=== PATIENT | female | born 1935 | race Caucasian/White ===

== ENCOUNTER 2018-09-16 18:19 | Inpatient (IN) | payer OTHER ==
[~2018-09-16] VITALS: Ht 154.9 cm; Wt 64.9 kg
--- NOTE | 2018-09-16 19:06 | NUR ---
PT C/O LOWER ABDOMINAL PAIN SINCE THIS MORNING. PT STATES SHE IS CONSTIPATED AND NAUSEAOUS. PT HAS EXTENSIVE HX OF DIVERTICULITIS, HTN, BLADDER SURGERY, KIDNEY SURGERY, AND MOTHER OF COLON CANCER AT 83. PT DENIES ANY PAINFUL URINATION OR VISIBLE BLOOD. PT STATES "THIS PAIN FEELS DIFFERENT THAN BEFORE". FAMILY AT BEDSIDE. NO DISTRESS NOTED AT THIS TIME.
[2018-09-16 19:27] LABS: BASOPHIL % 0.2 % (0-2); PLATELET COUNT 236 x10^3mcL (130-400); RED CELL DISTRIBUTION WIDTH 17.5 % (11.5-14.5)
--- NOTE | 2018-09-16 19:27 | NUR ---
REPORT GIVEN TO MAREK BYERS.
[2018-09-16 19:32] LABS: ALBUMIN 3.8 g/dL (3.4-5.0); ALKALINE PHOSPHATASE 168 U/L (46-116); ALT/SGPT 15 U/L (14-59); AST/SGOT 21 U/L (15-37); BILIRUBIN TOTAL 0.44 mg/dL (0.20-1.00); CALCIUM 9.5 mg/dL (8.5-10.1); CARBON DIOXIDE 35.3 mmol/L (21-32); CHLORIDE SERUM 94 mmol/L (98-107); GLUCOSE SERUM 115 mg/dL (74-106); LIPASE 234 IU/L (73-393); POTASSIUM SERUM 3.5 mmol/L (3.5-5.1); SODIUM SERUM 139 mmol/L (136-145)
[2018-09-16 19:39] LABS: AMYLASE 121 U/L (25-115); CREATININE SERUM 6.1 mg/dL (0.6-1.0); TOTAL PROTEIN, SERUM 8.5 g/dL (6.4-8.2)
--- NOTE | 2018-09-16 19:53 | NUR ---
PT TAKEN TO CT VIA RBERNIE.
--- NOTE | 2018-09-16 21:10 | NUR ---
SPOKE WITH DR. JOSHUA FOR ADMIT ORDERS. PT TO BE ADMITTED TO MED/SURG WITH DSG: APPENDICITIS.CALL DR. NATALIIA REED FOR FURTHER ORDERS.
--- NOTE | 2018-09-16 22:07 | NUR ---
RECEIVED PT FROM ED VIA [facility], CAME IN DUE TO ABDOMINAL PAIN W/ NAUSEA AND CONSTIPATION. AAOX4. DENIES HEADACHE/DIZZINESS. ABLE TO FOLLOW COMMANDS. NO SOB NOTED, LUNG SOUNDS CTA. DENIES CHEST PAIN/PRESSURE. STATED THAT SHE HAS 5/10 ABDOMINAL PAIN DESCRIBED THROBBING AND SHARP W/ MILD NAUSEA. STATED THAT SHE HAD BM TODAY BUT IS CONSTIPATED, PT STATED THAT SHE IS TAKING LAXATIVES. W/ LUE AV SHUNT, BRUIT AND THRILL PRESENT. PT STATED THAT SHE STILL VOIDS BUT A LITTLE BIT. ABLE TO MOVE ALL EXTREMITIES.IV SITE ON RFA IS PATENT AND INTACT. RECEIVED PT FROM ED W/ NS ONGOING. SIDE RAILS UPX2. CALL LIGHT ON REACH. ENDORSED TO PRIMARY NURSE CHANA FOR CONTINUITY OF CARE
--- NOTE | 2018-09-16 22:10 | NUR ---
RECEIVED PT FROM ED. PT AOX4. DENIES BAIRES/DIZZINESS. MED SURG PT. DENIES CP/PRESSURE. PULSES PALPABLE, NO EDEMA NOTED. LUNG SOUNDS CLEAR, ON RA. DENIES SOB/DIFFICULTY BREATHING. BOWEL SOUNDS ACTIVE. VOIDS FREELY, C/O OLIGURIA. AMBULATORY. SKIN INTACT. LUE SHUNT NOTED. IV TO RFA, INTACT AND PATENT. BED IN LOWEST POSITION. CALL LIGHT WITHIN REACH. WILL CONTINUE TO MONITOR.
[2018-09-16 22:32] VITALS: BP 117/64
[2018-09-16 22:35] VITALS: Ht 154.9 cm; Wt 64.9 kg
--- NOTE | 2018-09-16 22:42 | NUR ---
PT C/O 5/10 PAIN IN ABD. MEDICATED PER EMAR. WILL CONTINUE TO MONITOR.
[2018-09-17] MEDS ORDERED: NEURONTIN100 MG PO (00:20)
[2018-09-17] MEDS ORDERED: GABAPENTIN300 M4 PO (00:21)
[2018-09-17] MEDS ORDERED: ASPIR LOW81 MG PO (00:22)
[2018-09-17] MEDS ORDERED: RENA-VITE1 TAB (00:23)
[2018-09-17] MEDS ORDERED: LIPI10 PO (00:23)
[2018-09-17] MEDS ORDERED: NOR10 PO (00:25)
[2018-09-17] MEDS ORDERED: OMEPRAZOLE40 M1 PO (00:25)
[2018-09-17] MEDS ORDERED: RENVELA800 M1 PO (00:27)
[2018-09-17] MEDS ORDERED: ISOSORBIDE MONO60 MG PO (00:28)
[2018-09-17] MEDS ORDERED: PATANOL5 ML OU (00:32)
--- NOTE | 2018-09-17 03:33 | NUR ---
PT C/O 02/23 PAIN IN HER ABD. MEDICATED PER EMAR. WILL CONTINUE TO MONITOR.
[2018-09-17 05:40] VITALS: BP 165/63
--- NOTE | 2018-09-17 05:40 | NUR ---
TAYO WIPES PROVIDED TO PT. REPORT GIVEN TO OBINNA FROM OR.
--- NOTE | 2018-09-17 05:45 | NUR ---
PT HEP LOCKED. TAKEN DOWN TO OR BY OR NURSES. WILL ENDORSE CARE TO ONCOMING SHIFT NURSE.
[2018-09-17 05:49] LABS: CALCIUM 9.2 mg/dL (8.5-10.1); CARBON DIOXIDE 31.9 mmol/L (21-32); CHLORIDE SERUM 99 mmol/L (98-107); GLUCOSE SERUM 109 mg/dL (74-106); POTASSIUM SERUM 3.6 mmol/L (3.5-5.1); SODIUM SERUM 137 mmol/L (136-145)
[2018-09-17 05:52] LABS: CREATININE SERUM 6.6 mg/dL (0.6-1.0)
[2018-09-17 05:54] LABS: BASOPHIL % 0.3 % (0-2); PLATELET COUNT 171 x10^3mcL (130-400)
[2018-09-17 07:09] LABS: UA SPECIFIC GRAVITY 1.015 (1.005-1.035); microscopic required? YES; urine erythrocyte NEGATIVE (NEGATIVE)
[2018-09-17 07:12] LABS: RED CELL DISTRIBUTION WIDTH 17.3 % (11.5-14.5)
--- NOTE | 2018-09-17 07:15 | NUR ---
CARE ENDORSED TO ONCOMING SHIFT NURSE.
[2018-09-17 07:48] VITALS: BP 139/59
--- NOTE | 2018-09-17 07:48 | NUR ---
ARRIVED FR. RECOVERY ROOM S/P LAP APPY.4 INCISSION X4 WITH BANDAID CDI.AAO X4.DENIES ANY PAIN/DISCOMFORT.LUNGS CLEAR.PT NONE-TELE.LUE WITH AV SHUNT + BRUIT AND THRILL.V/S STABLE.CALL LIGHT WITHIN REACH.INSTRUCTED TO CALL FOR ANY PAIN/DISCOMFORT.WILL CONTINUE TO MONITOR PT.
--- NOTE | 2018-09-17 11:09 | NUR ---
TALKED TO DR. GARVEY ABOUT PT NEED FOR DIALYSIS TODAY.CONSULTED /[facility]. PER PT HAS DIALYSIS APT AT 2 PM.INFORMED THAT PT WILL NEED TO BE DISCHARGE BEFORE PT'S APT. IS AWARE.
[2018-09-17] MEDS ORDERED: TYLENOL WITH CO1 TA2 PO (11:19)
[2018-09-17 11:38] VITALS: BP 139/58
--- NOTE | 2018-09-17 11:48 | NUR ---
GAVE TYLENOL 650 MG PO FOR C/O MILD ABD'L INCISSION AT 6/10 PAIN SCALE.WILL CONTINUE TO MONITOR PT.
--- NOTE | 2018-09-17 11:58 | NUR ---
daughter came and talk to rn.informed nurse pt is not comfortable going home.claims to be not feeling well.paged .
--- NOTE | 2018-09-17 12:00 | NUR ---
INFORMED ABOUT PATIENT AND FAMILY NOT COMFORTABLE TO GO HOME.PT CLAIMS NOT FEELING GOOD.PT WILL STAY FOR NOW PER WILL HAVE TO WALK PT AND SEE HOW SHE DOES AND LET HIM KNOW.ALSO PT WANTED TO HAVE DIALYSIS HERE.PAGED INFORMED HIM PT AND FAMILY PREFER TO HAVE DIALYSIS HERE. WILL ORDER DIALYSIS FOR PT.
--- NOTE | 2018-09-17 12:48 | NUR ---
WENT TO RECHECK PT'S PAIN LEVEL PER PT PAIN WENT DOWN TO 2/10 PAIN SCALE.
--- NOTE | 2018-09-17 14:38 | NUR ---
AMBULATED PT TO THE RESTROOM TOLERATED IT WELL.
--- NOTE | 2018-09-17 15:44 | NUR ---
DIALYSIS STARTED BY DEMETRISDIALYSIS NURSE.
[2018-09-17 16:30] VITALS: BP 146/46
[2018-09-17 18:19] VITALS: BP 171/50
--- NOTE | 2018-09-17 18:19 | NUR ---
DIALYSIS DONE WITH 2 L OUT.PT TOLERATED IT WELL.ALSO GAVE IMDUR EARLY FOR KS=[id number]
--- NOTE | 2018-09-17 18:28 | NUR ---
NO SIGNIFICANT CHANGE NOTED.WILL ENDORSE TO NEXT SHIFT.
--- NOTE | 2018-09-17 18:50 | NUR ---
PAGED TO ASK FOR PRN BP MEDS AND PT C/O GAS PAINS.AWAITING FOR CALL BACK.
--- NOTE | 2018-09-17 19:25 | NUR ---
CALLED BACK ORDERED SIMETHICONE AND HYDRALAZINE 10 MG PO.ORDERS MADE.ENDORSED TO NAZSD NEXT SHIFT TO GIVE
[2018-09-17 20:12] VITALS: BP 162/56
--- NOTE | 2018-09-17 20:26 | NUR ---
AAO X4 VERBAL THAI SPEAKING WITH SOME LAO, DENIES PAIN NO DISTRESS, LUNGS CTA, NO COUGHING OR CHEST CONGESTION, S/P HD PUTTING OUT 2L, TOLERATED WELL, LUE AV SHUNT WITH PRESSURE DRESSING NO BLEEDING, PT HAS INTACT BANDAID DRESSING LOWER ABDL AREA, X5 NO SIGNS OF BLEEDING PT DENIES PAIN JUST HAVING SOME GAS, PAIN MD AWARE MYLICON PO GIVEN PER ORDER, BP 162/56, IV ACCESS RFA PATENT NON INFIL, IVF INFUSING @ 80CC/HR, SHIFT ASSESSMENT DONE, ATTENDED NEEDS CONT TO MONITOR.
--- NOTE | 2018-09-18 02:27 | NUR ---
PT ASLEEP NO S/SX OF PAIN OR DISCOMFORTS, CHECKED AT INTERVALS.
[2018-09-18 04:51] VITALS: BP 148/53
[2018-09-18 06:38] LABS: BASOPHIL % 0.2 % (0-2); PLATELET COUNT 148 x10^3mcL (130-400)
[2018-09-18 06:40] LABS: RED CELL DISTRIBUTION WIDTH 17.4 % (11.5-14.5)
--- NOTE | 2018-09-18 06:47 | NUR ---
ASSISTED PT TO THE BATHROOM, REQUIRES MIN ASSIST, DENIES DIZZINESS, CLAIMED PASSING GAS AFTER AMBULATION, NO DISTRESS LUNGS CTA, SLEPT WELL DURING THE SHIFT, CONT TO MONITOR, WILL ENDORSE TO INCOMING SHIFT FOR F/U CARE.
[2018-09-18 07:18] LABS: ALKALINE PHOSPHATASE 109 U/L (46-116); AST/SGOT 15 U/L (15-37); BILIRUBIN TOTAL 0.4 mg/dL (0.20-1.00); CALCIUM 9.1 mg/dL (8.5-10.1); CARBON DIOXIDE 28.6 mmol/L (21-32); CHLORIDE SERUM 103 mmol/L (98-107); GLUCOSE SERUM 94 mg/dL (74-106); POTASSIUM SERUM 4.2 mmol/L (3.5-5.1); SODIUM SERUM 139 mmol/L (136-145); TOTAL PROTEIN, SERUM 6.5 g/dL (6.4-8.2)
[2018-09-18 07:19] LABS: ALBUMIN 2.6 g/dL (3.4-5.0)
[2018-09-18 07:59] LABS: MAGNESIUM 1.9 mg/dL (1.8-2.4); PHOSPHOROUS 3.5 mg/dL (2.5-4.9)
[2018-09-18 08:07] LABS: ALT/SGPT 6 U/L (14-59)
[2018-09-18 09:08] VITALS: BP 154/52
--- NOTE | 2018-09-18 09:17 | NUR ---
PT ON BED, AWAKE, ALERT, AND ORIENTED. HAS NO COMPLAINT OF PAIN, SOB, OR DIZZINESS. RESPONDS WELL TO QUESTION AND ANSWER. CLEAR TESSA LUNG FIELD, SYMMETRICAL CHEST EXPANSION AND UNLABORED. ACTIVE BOWEL SOUNDS NOTED. NON DISTENDED ABDOMEN. DRESSING IS CDI. S/P LAP APPY 09/17/18. FAMILY AT BEDSIDE. SIDE RAILS UP, CALL LIGHT WITHIN REACH, WILL CONTINUE TO MONITOR
--- NOTE | 2018-09-18 12:00 | NUR ---
PT ON BED, AWAKE, ALERT, AND ORIENTED. FAMILY AT BEDSIDE. WILL CONTINUE TO MONITOR
[2018-09-18 13:13] VITALS: BP 154/52
--- NOTE | 2018-09-18 14:55 | NUR ---
PT ON BED, ASLEEP. WILL CONTINUE TO MONITOR
--- NOTE | 2018-09-18 16:28 | NUR ---
D/C INSTRCUTION DONE. IV HAS BEEN D/C.
== END 2018-09-18 16:35 | disposition home or self-care (01) | DRG 341 ==
LOC: ED 18:19 → MU 21:10
PROVIDERS: Emergency Medicine; Internal Medicine Nephrology; Surgery; ADMIT Internal Medicine
PROC: 0DTJ4ZZ Resection of Appendix, Percutaneous Endoscopic Approach (ICD-10-PCS; principal; 2018-09-17 06:00)
DX: K35.80 Unspecified acute appendicitis (principal); N18.6 End stage renal disease; I12.0 Hypertensive chronic kidney disease with stage 5 chronic kidney disease or end stage renal disease; Q61.3 Polycystic kidney, unspecified; K21.9 Gastro-esophageal reflux disease without esophagitis; K57.30 Diverticulosis of large intestine without perforation or abscess without bleeding; E83.39 Other disorders of phosphorus metabolism; D64.9 Anemia, unspecified; Z99.2 Dependence on renal dialysis; Z68.27 Body mass index [BMI] 27.0-27.9, adult
CPT/HCPCS: J0330; J0690; J0694; J1170; J1885; J2250; J2270; J2405; J2704; J2710; J3010; J3490; J7030; J7040; J7120; Q0092

== ENCOUNTER 2018-12-15 18:43 | Emergency (ER) | payer OTHER ==
[~2018-12-15] VITALS: Ht 162.6 cm; Wt 64.4 kg
[~2018-12-15 18:43] MED LIST: ASPIR LOW81 MG PO; GABAPENTIN300 M4 PO; ISOSORBIDE MONO60 MG PO; LIPI10 PO; NEURONTIN100 MG PO; NOR10 PO; OMEPRAZOLE40 M1 PO; PATANOL5 ML OU; RENA-VITE1 TAB; RENVELA800 M1 PO; TYLENOL WITH CO1 TA2 PO
[2018-12-15 19:07] VITALS: Ht 162.6 cm; Wt 64.4 kg
[2018-12-15 22:18] LABS: BASOPHIL % 0.5 % (0-2); PLATELET COUNT 138 x10^3mcL (130-400); RED CELL DISTRIBUTION WIDTH 15.4 % (11.5-14.5)
[2018-12-15 22:31] LABS: ALKALINE PHOSPHATASE 137 U/L (46-116); ALT/SGPT 20 U/L (14-59); AST/SGOT 22 U/L (15-37); BILIRUBIN TOTAL 0.36 mg/dL (0.20-1.00); CALCIUM 9.2 mg/dL (8.5-10.1); CARBON DIOXIDE 37.2 mmol/L (21-32); CHLORIDE SERUM 97 mmol/L (98-107); GLUCOSE SERUM 100 mg/dL (74-106); POTASSIUM SERUM 3.8 mmol/L (3.5-5.1); SODIUM SERUM 140 mmol/L (136-145); TOTAL PROTEIN, SERUM 7.5 g/dL (6.4-8.2)
[2018-12-15 22:32] LABS: ALBUMIN 3.3 g/dL (3.4-5.0)
[2018-12-15 22:34] LABS: CREATININE SERUM 4.1 mg/dL (0.6-1.0)
[2018-12-16 00:05] VITALS: BP 158/57
== END 2018-12-16 00:05 | disposition home or self-care (01) ==
LOC: ED 18:43
PROVIDERS: Emergency Medicine
DX: M54.2 Cervicalgia (principal); M25.512 Pain in left shoulder; M25.511 Pain in right shoulder; M54.6 Pain in thoracic spine; I10 Essential (primary) hypertension; R42 Dizziness and giddiness; K21.9 Gastro-esophageal reflux disease without esophagitis; Z99.2 Dependence on renal dialysis
CPT/HCPCS: 36415; J1885